=== PATIENT | male | born 1945 | race African-American/Black ===

== ENCOUNTER 2019-11-02 06:50 | Day surgery (SDC) | payer MEDICARE, OTHER ==
--- NOTE | 2019-10-30 10:23 | Opthalmology H&P ---
Ophthalmology H&P H&P Chief Complaint: decreased vision in right eye HPI Vision Affects Ability to: read, manage personal affairs Past Ocular History: retinal problems - NPDR OU, other - Meibomian gland dysfunction OU HPI Narrative Blurry vision Exam Visual Acuity: OD 20/100 OS 80 Tension: OD 12 OS 14 Eye Exam: normal OU: external exam, palpebral fissure-width, marginal reflex distance, levator function, corneas, anterior chambers; findings: lens - NS Cataract OU, fundus exam - NPDR OU, Assessment/Plan Treatment Plan: cataract extraction w/ lens implant Goals of Treatment: improvement of vision, enhance quality of life Attestation Attestation The risks and benefits of the surgery as well as alternative procedures were explained to the patient in detail. Layo Kate MD Oct 30, 2019 10:23
--- NOTE | 2019-10-30 10:24 | Pre-Procedure Note/Attestation ---
Pre-Procedure Note/Attestation Complete Prior to Procedure Planned Procedure: right Procedure Narrative: Cataract extraction with IOL implant right eye Indications for Procedure Pre-Operative Diagnosis: Nuclear sclerotic cataract right eye Attestation I attest that I discussed the nature of the procedure; its benefits; risks and complications; and alternatives (and the risks and benefits of such alternatives ), prior to the procedure, with the patient (or the patient's legal chemical sales representative). I attest that, if there was a reasonable possibility of needing a blood transfusion, the patient (or the patient's legal chemical sales representative) was given the [facility] standardized written summary, pursuant to the [place] Blood Safety Act ([place] Health and Safety Code # 1645, as amended). I attest that I re-evaluated the patient just prior to the surgery and that there has been no change in the patient's H&P, except as documented below: Layo Kate MD Oct 30, 2019 10:24
[2019-11-02] VITALS (11 sets, daily range): BP systolic 129–146; BP diastolic 72–93
[~2019-11-02] VITALS: Ht 176.5 cm; Wt 99.8 kg
[2019-11-02] MEDS ORDERED: Tetracaine 0.5% Opth 4ml Soln ONE (07:00)
[2019-11-02] MEDS ORDERED: Dexamethasone 4mg/ml vial ONE (07:00)
[2019-11-02] MEDS ORDERED: Pred Forte 1% Opth Susp 1ml ONE (07:00)
[2019-11-02] MEDS ORDERED: Polysporin Oint 15gm TOPIC ONE (07:00)
[2019-11-02] MEDS ORDERED: Pilocarpine 1% Opth 15ml Soln ONE (07:00)
[2019-11-02] MEDS ORDERED: Proparacaine 0.5% Opth Soln 15ml RIGHT EYE ONE (07:00)
[2019-11-02] MEDS ORDERED: Tetracaine 0.5% Opth 4ml Soln RIGHT EYE ONE (07:00)
[2019-11-02] MEDS ORDERED: Diclofenac Sod 0.1% Op Soln RIGHT EYE SCH (07:00)
[2019-11-02] MEDS ORDERED: Akten 3.5% 1ml Btl RIGHT EYE ONE (07:00)
[2019-11-02] MEDS: Tropicamide 1% Opth 15ml Soln RIGHT EYE SCH ×3 (08:05→08:52)
[2019-11-02] MEDS: Phenylephrine 10% Opth Soln 5ml RIGHT EYE SCH ×3 (08:05→08:52)
[2019-11-02] MEDS: Cyclopentolate 1% Opth Sol 2ml RIGHT EYE SCH ×3 (08:05→08:52)
[2019-11-02] MEDS: Tobramycin Op Soln 0.3% 5ml RIGHT EYE SCH ×3 (08:06→08:52)
[2019-11-02] MEDS ORDERED: PROSTATE PO (08:15)
[2019-11-02] MEDS ORDERED: CIPROFLOXACIN500 M2 ORAL (08:15)
[2019-11-02] MEDS ORDERED: METFORMIN HCL1000 M1 ORAL (08:15)
[2019-11-02] MEDS ORDERED: INSULIN SUBQ (08:15)
[2019-11-02] MEDS ORDERED: AMPICILLIN PO (08:15)
[2019-11-02] MEDS ORDERED: OXYCONTIN30 MG ORAL (08:17)
[2019-11-02] MEDS ORDERED: Midazolam 2mg/2ml Inj ONE ×2 (08:22→10:22)
[2019-11-02] MEDS ORDERED: fentaNYL 100 mcg/2 mL IV ONE (10:22)
[2019-11-02] MEDS ORDERED: Sterile Water Irrig 1000ml IRRIG ONE (10:30)
[2019-11-02] MEDS ORDERED: LR 1000ml ONE (10:30)
--- NOTE | 2019-11-02 10:51 | Anethesia Preoperative Eval ---
Anesthesia Pre-op PMH/ROS General Date of Evaluation: Nov 02, 2019 Time of Evaluation: 10:30 Anesthesiologist: luc ASA Score: ASA 3 Mallampati Score Class I : Soft palate, uvula, fauces, pillars visible Class II: Soft palate, uvula, fauces visible Class III: Soft palate, base of uvula visible Class IV: Only hard plate visible Mallampati Classification: Class III Surgeon: Lavniia Diagnosis: cataract Surgical Procedure: cataract extraction right Anesthesia History: none Family History: no anesthesia problems Allergies: Uncoded Allergies: blood pressure cuff (Allergy, Mild, SKIN REDNESS,ITCHING, 11/02/19) Medications: see eMAR Patient NPO?: Yes NPO Date: Nov 02, 2019 NPO Time: 00:01 Past Medical History Cardiovascular: Reports: HTN, CAD Pulmonary: Denies: asthma, COPD, TYRONE, other Gastrointestinal/Genitourinary: Reports: GERD; Denies: CRI, ESRD, other Neurologic/Psychiatric: Denies: dementia, CVA, depression/anxiety, TIA, other Endocrine: Reports: DM; Denies: hypothyroidism, steroids, other HEENT: Reports: cataract (R) Hematology/Immune: Denies: anemia, DVT, bleeding disorder, other Musculoskeletal/Integumentary: Denies: OA, RA, DJD, DDD, edema, other Other: obesity Anesthesia Pre-op Phys. Exam Physician Exam Last Vital Signs Date Time Temp Pulse Resp B/P (MAP) Pulse Ox O2 Delivery O2 Flow Rate FiO2 11/02/19 08:26 97.9 82 20 129/85 95 Room Air Constitutional: NAD Neurologic: CN 2-12 intact Cardiovascular: RRR Respiratory: CTA Gastrointestinal: S/NT/ND Airway Exam Mallampati Classification 3 Mallampati Score: Class III MO: full Neck: thick Dentures: no upper, no lower Anesthesia Pre-op A/P Labs Accucheck 182 Studies Pre-op Studies: EKG - SR Risk Assessment & Plan Assessment: denies changes in health Plan: mac Status Change Before Surgery: No Pre-Antibiotics Drug: decline Suzette Martino CRNA Nov 02, 2019 10:51
[2019-11-02] MEDS ORDERED: BSS 15ml BTL ONE (11:12)
[2019-11-02] MEDS ORDERED: BSS 500ml btl ONE (11:12)
[2019-11-02] MEDS ORDERED: EPINEPHrine 1mg/1ml Amp ONE (11:12)
[2019-11-02] MEDS ORDERED: Carbachol 0.01% Op Soln 1.5ml vial ONE (11:12)
[2019-11-02] MEDS ORDERED: Povidone-Iodine 5% opth solution ONE (11:13)
[2019-11-02] MEDS ORDERED: Sodium Hyaluronate 14 mg/ml 0.85ml ONE (11:13)
--- NOTE | 2019-11-02 11:14 | Immediate Post-Op Evaluation ---
Immediate Post-Op Evalulation Immediate Post-Op Evalulation Procedure: Right eye cataract extraction with IOL Date of Evaluation: Nov 02, 2019 Time of Evaluation: 11:13 IV Fluids: 500 Blood Pressure Systolic: 146 Blood Pressure Diastolic: 78 Pulse Rate: 81 Respiratory Rate: 14 O2 Sat by Pulse Oximetry: 95 Temperature (Fahrenheit): 97.8 Nausea: No Vomiting: No Patient Status: awake, reacts, patent Hydration Status: adequate Drug: none StephenriSuzette melendez CRNA Nov 02, 2019 11:14
--- NOTE | 2019-11-02 12:15 | 48 Hour Post Anesthesia Eval ---
Post Anesthesia Evaluation Procedure: Right eye cataract extraction with IOL Date of Evaluation: Nov 02, 2019 Time of Evaluation: 12:14 Blood Pressure Systolic: 134 0: 80 Pulse Rate: 75 Respiratory Rate: 14 O2 Sat by Pulse Oximetry: 98 Airway: patent Nausea: No Vomiting: No Hydration Status: adequate Cardiopulmonary Status: stable Mental Status/LOC: patient returned to baseline Post-Anesthesia Complications: none Follow-up care needed: ready to discharge Suzette Martino CRNA Nov 02, 2019 12:15
--- NOTE | 2019-11-02 14:45 | Pre-op HX & Phy Repo 2 SIG ---
DATE OF ADMISSION: 11/02/2019 PRESURGICAL INTERNAL MEDICINE HISTORY AND PHYSICAL REASON FOR EVALUATION: I was asked by Dr. Layo Kate to see this 74-year-old male, who going for elective surgery on the right eye. The patient has a nuclear sclerotic cataract, left eye. Please see full Ophthalmology History and Physical by Dr. Layo Kate. The patient was evaluated at [facility] outpatient procedure department. The patient is alert. PAST MEDICAL HISTORY: Remarkable for hypertension, type 2 diabetes mellitus, low back pain, GERD with heartburns, benign prostatic hypertrophy. Denied thyroid problem. No history of heart attack. No GI bleeding. No thyroid problem. No renal failure. Denied anemia. The patient also has obesity with BMI of 32 kilogram/meter square and chronic bronchitis. SURGICAL HISTORY: Ventral hernia repair x2. FAMILY HISTORY: Father has seizures and mother unknown, at age of 63. ALLERGIES: To pollens. PRESENT MEDICATIONS: Include oxycodone 3 times a day for back pain, ciprofloxacin, metformin, insulin p.r.n. sliding scale, Singulair. SOCIAL HISTORY: The patient smoked for approximately 25 years pack and a half a day and stopped 2 years ago. Denied alcohol or street drug use. PHYSICAL EXAMINATION: GENERAL: Alert, well-developed, well-nourished male in his 70s, overweight. VITAL SIGNS: Blood pressure 129/85, temperature 97.9, pulse 82, regular, respirations 20, O2 saturation 95% on room air. HEENT: The patient's head normocephalic, atraumatic. Ears, clear. Eyes, full description per Dr. Layo Kate. Mouth, clear and moist without dentures. SKIN: No rashes. No ulcers. Dry, warm. LYMPHATICS: Lymph nodes not enlarged. NECK: Supple. No jugular venous distention. Carotids artery +2. Trachea midline. CHEST: No deformity or asymmetry. LUNGS: Clear to auscultation, percussion. No rales or rhonchi. HEART: Regular. No ectopy. No murmur. No S3, S4. ABDOMEN: Soft, benign. Liver and spleen not enlarged. Upper ventral hernia fully reduced. EXTREMITIES: No peripheral edema. No varicose vein. No edema. NERVOUS SYSTEM: No tremor. No nystagmus. DIAGNOSTIC AND LABORATORY DATA: ECG normal sinus rhythm, 77 per minute, normal ECG. The patient did not eat or drink since yesterday. Laboratory work pending. Fasting blood sugar 136 mg/dcL. IMPRESSION: 1. Sclerotic nuclear cataract, right eye. 2. Hypertension, controlled. 3. Diabetes mellitus type 2, poorly controlled. 4. GERD. 5. Low back pain. 6. Obesity. BMI is 32 kilogram/meter square. PLAN: Cataract extraction, right eye with intraocular lens implant per Dr. Layo Kate. CONCLUSION: The patient is a 74-year-old male, with multiple medical problems including diabetes, hypertension, low back pain, GERD, and benign prostatic hypertrophy. The patient's blood sugar is 136 mg/dcL. EKG is in normal limits. The patient did not eat or drink from last night. The patient's condition optimized for surgery. Thank you very much, Dr. Kate, for privilege to participate in presurgical care of this interesting patient. Filemon Villegas M.D. DR: ZAINAB JOB#: [id number] CC:
--- NOTE | 2019-11-03 12:00 | Brief Operative Note ---
Immediate Post Operative Note Operative Note Chief Complaint: Blurry vision Pre-op Diagnosis: Nuclear sclerotic cataract right eye Procedure: Cataract extraction with IOL implant right eye Post-op Diagnosis: Pseudo OD Findings: consistent w/pre-op dx studies Surgeon: Layo Kate MD Anesthesiologist: Suzette Martino CRNA Anesthesia: MAC Specimen: none Complications: none Condition: stable Fluids: LR Estimated Blood Loss: none Drains: none Implant(s) used?: Yes - IOL OD Layo Kate MD Nov 03, 2019 12:00
--- NOTE | 2019-11-03 12:03 | Operative Note - PDOC ---
Operative Note Operative Note Date of Operation/Procedure: Nov 02, 2019 Chief Complaint: Blurry vision Pre-op Diagnosis: Nuclear sclerotic cataract right eye Procedure: Cataract extraction with IOL implant right eye Post-op Diagnosis: Pseudo OD Operative Findings: consistent w/pre-op dx studies Surgeon: Layo Kate MD Anesthesiologist: Suzette Martino CRNA Anesthesia: MAC Specimen: none Complications: none Condition: stable Fluids: LR Estimated Blood Loss: none Drains: none Implant(s) used?: Yes - IOL OD Indications for Procedure Nuclear sclerotic cataract right eye Description of Procedure This patient has been complaining visually significant cataract in the right eye with the best corrected visual acuity of 20/100 under moderate glare conditions worse. The patient complains of difficulties with glare in performing activities of daily living and wants to manage personal affairs with comfort and accuracy and see well enough to move with safety at home and outdoors. The risks, benefits and alternatives of the procedure were discussed with the patient in the office prior to scheduling surgery. All questions from the patient were answered after the surgical procedure was explained in detail. The risks of the procedure as explained to the patient include, but are not limited to, pain, infection, bleeding, loss of vision, retinal detachment, need for further surgery, loss of lens nucleus, double vision, etc. Alternative procedures were discussed which include, to do nothing or seek a second opinion. Informed consent for this procedure was obtained from the patient. The patient was referred to a primary care physician for a cardiopulmonary clearance prior to surgery, after proper evaluation was done patient was properly scheduled for outpatient surgery. The patient was brought to the operating room where the anesthesiologist established I.V. lines and cardiac monitoring leads. Mild intravenous sedation was administered. The patient was then prepared with a 5% solution of povidone -iodine to the conjunctival fornix and lashes, and a 5% solution of povidone- iodine to the lids and periorbital skin. The patient was then draped in the usual sterile fashion. A lid speculum was then placed in the operative eye. A keratome blade was then used to create a biplanar incision into the anterior chamber. Viscoelastics was then instilled into the anterior chamber. A 3-mm single pass clear corneal incision was made just anterior to the vascular arcade of the temporal limbus using a keratome. Anterior capsulorrhexis was created. The nucleus was hydrodissected and hydrodelineated, and was freely movable in the capsular bag. The nucleus was then phacoemulsified. Following the deep groove formation, the lens was split bimanually and epicortex removed under vacuum burst-mode phacoemulsification. Peripheral cortex was removed with the irrigation and aspiration handpiece. The capsular bag was expanded with viscoelastic. The intraocular lens was then inspected for right power and size and thought to be satisfactory. The implant was inspected under the microscope and found to be free of defects. The implant was inserted into the cartridge system under viscoelastic and placed in the capsular bag. The trailing haptic was positioned with the cartridge system. Viscoelastics was removed from the anterior chamber using the irrigation and aspiration unit. The corneal wound was then tested for leaks and none were found. The lid speculum were then removed. Sponge and needle counts were correct. An eye patch and shield were placed over the operative eye. The patient was taken to the recovery room in stable condition. There were no complications. The patient tolerated the procedure well. The patient was then transferred to the ambulatory surgery unit in stable and satisfactory condition , was given detailed written instructions and asked to follow up in the office the next day. Layo Ktae MD Nov 03, 2019 12:03
--- NOTE | 2019-11-06 15:57 | Cardiology Report ---
APPROVED REPORT EKG Measurement Heart [id number] Normal sinus rhythm Normal ECG
== END 2019-11-02 13:20 | disposition home or self-care (01) ==
LOC: SUR 06:50
DX: H25.11 Age-related nuclear cataract, right eye (principal); I10 Essential (primary) hypertension; E11.9 Type 2 diabetes mellitus without complications; K21.9 Gastro-esophageal reflux disease without esophagitis; M54.5 Low back pain; E66.9 Obesity, unspecified; Z68.32 Body mass index [BMI] 32.0-32.9, adult; N40.0 Benign prostatic hyperplasia without lower urinary tract symptoms
CPT/HCPCS: 66984; 82962; 93005; J0171; J1100; J2250; J3010; J7120; V2632; 94003; 94150